=== PATIENT | male | born 1995 | race Caucasian/White ===

== ENCOUNTER 2017-03-21 14:52 | Emergency (ER) | payer BC ==
[~2017-03-21] VITALS: Ht 182.9 cm; Wt 70.0 kg
[2017-03-21 14:54] VITALS: Ht 182.9 cm; Wt 70.0 kg
--- NOTE | 2017-03-21 16:12 | EMERGENCY ROOM VISIT NOTE ---
History Report prepared by Angy: Caprice Palomares Under the Supervision of: Dr. Rodrick Chiu M.D. First contact with patient: 15:54 Chief Complaint: GI ASSESSMENT Stated Complaint: MANUEL, BLOATING, ABD PAIN, BLOOD IN STOOL Nursing Triage Summary: pt to the ED with c/o bloating for several years and a week ago became concerned that it may be serious. thinks there might be blood in stool has upp abd pain but doesn't remember it before the anxiety and was seen at pmd 2 days ago and given anxiety meds History of Present Illness The patient is a 22 year old male who presents to the Emergency Room with complaints of red flakes in his stool occurring this morning. The patient states he has a history of intermittent bloating beginning a couple years ago. He states his bloating comes every couple of months and lasts for a couple weeks at a time. The patient has a referral with gastroenterology but has not been seen by them yet. He notes a recent increase in anxiety and was started on anxiety medication 2 days ago. He also takes and Zantac. Per nursing note, the patient has upper abdominal pain. Source of History: patient Onset: this morning Position: other (global) Quality: other (blood in stool) Timing: other (episode) Associated Symptoms: + abdominal pain Note: Pt notes bloating Review of Systems See HPI for pertinent positives & negatives. A total of 10 systems reviewed and were otherwise negative. Past Medical & Surgical Medical Problems: (1) No Known Active Medical Problems Family History FHx: gallstones Social History Smoking Status: Never Smoker Smokeless Tobacco Use: No Alcohol Use: occasionally Marital Status: single Occupation Status: employed Physical Exam Vital Signs Date Time Temp Pulse Resp B/P (MAP) Pulse Ox O2 Delivery O2 Flow Rate FiO2 03/21/17 16:37 37.0 97 20 143/77 100 Room Air 03/21/17 14:54 36.8 96 16 157/96 98 Room Air Physical Exam GENERAL: Patient is a healthy-appearing well-nourished male HEAD: Normocephalic atraumatic EYES: Ocular movements intact pupils equal and react to light OROPHARYNX mucous membranes are moist no exudates present no erythema or edema present NECK: Supple no nuchal rigidity CHEST: Good equal expansion LUNGS: Clear and equal to auscultation CARDIAC: Normal S1 and S2 ABDOMEN: Soft nontender no guarding BACK: No CVA tenderness EXTREMITIES: No pain upon palpation normal muscle strength in all groups no clubbing cyanosis or edema RECTAL: Heme negative, no masses or hemorrhoids appreciated. NEURO: Patient is following commands and answering questions appropriately. Alert and oriented x3 Cranial Nerves 2-12 grossly intact Medical Decision & Procedures ER Provider Diagnostic Interpretation: Radiology results as stated below per my review and radiologist interpretation: KUB FINDINGS: Mild stool burden in the left colon. No bowel obstruction. No gross pneumoperitoneum. No calcifications to suggest nephrolithiasis. Osseous structures normal. Lung bases clear. IMPRESSION: 1. Mild stool burden in the left colon. No bowel obstruction. Electronically signed by: Yohan Rodas M.D. ED Course 1555: Past medical records reviewed. The patient was evaluated in room A12B. A complete history and physical examination was performed. 164: I updated the patient on his test results. 165: Upon reexamination the patient is resting comfortably. I discussed results and treatment plan with the patient. He verbalizes agreement and understanding. The patient is ready for discharge. Medical Decision Differential diagnosis: Etiologies such as appendicitis, diverticulitis, PUD, biliary pathology, UTI, pancreatitis, obstruction, mesenteric ischemia, aortic pathology, infections, inflammatory bowel disease, renal colic, as well as others were entertained. This is a 22-year-old male who presents emergency department complaining of multiple complaints. The patient reports he has had an anxiety attack. He recently was placed since her also as well as another anxiety medication he is more concerned that he feels he has blood in his stool. He is heme negative on rectal examination. This was done in the presence of a nurse. In addition the patient asked me to go through his stool and check out what he feels R blood flecks. There are red reflex present however they are heme-negative. Based on this finding I felt that the patient can be safely discharged home. He already has a follow-up with gastroenterology at home. Medication Reconcilliation Current Medication List: was personally reviewed by me Blood Pressure Screening Patient's blood pressure: Elevated blood pressure Blood pressure disposition: Referred to PCP Impression Primary Impression: Numbness and tingling Additional Impression: Constipation Scribe Attestation The scribe's documentation has been prepared under my direction and personally reviewed by me in its entirety. I confirm that the note above accurately reflects all work, treatment, procedures, and medical decision making performed by me. Departure Information Dispostion Home / Self-Care Referrals No Doctor, Assigned (PCP) Forms HOME CARE DOCUMENTATION FORM, IMPORTANT VISIT INFORMATION Patient Instructions Anxiety Body Response, ED Constipation, My [facility] Additional Instructions Take 10 oz bottle of miralax; Add to 16 oz of gatorade Drink continuously until moving creamy stools Clear liquid diet for next 48 hours Follow up with Gastroenterology Return if you develop fevers or pain worsens You have been examined and treated today on an emergency basis only. This is not a substitute for, or an effort to provide, complete comprehensive medical care. It is impossible to recognize and treat all injuries or illnesses in a single emergency department visit. It is therefore important that you follow up closely with your PCP. Call as soon as possible for an appointment. Thank you for your time and consideration. I look forward to speaking with you again soon. Please don't hesitate to call us if you have any questions. Problem Qualifiers Additional Impression: Constipation Constipation type: unspecified constipation type Qualified Codes: K59.00 - Constipation, unspecified
--- NOTE | 2017-03-21 16:29 | DIAGNOSTIC IMAGING REPORT ---
KUB CLINICAL HISTORY: 22 years-old Male presenting with Pt c/o bloating. TECHNIQUE: Single supine view of the abdomen was obtained. COMPARISON: None. FINDINGS: Mild stool burden in the left colon. No bowel obstruction. No gross pneumoperitoneum. No calcifications to suggest nephrolithiasis. Osseous structures normal. Lung bases clear. IMPRESSION: 1. Mild stool burden in the left colon. No bowel obstruction. Electronically signed by: Yohan Rodas M.D. 03/21/2017 4:27 PM Dictated Date/Time: 03/21/2017 4:27 PM
[2017-03-21 16:37] VITALS: BP 143/77; PULSE 97; TEMP 37; O2SAT 100
== END 2017-03-21 17:02 | disposition home or self-care (01) ==
LOC: C.EDB 14:54 → C.EDA 17:02
DX: R20.0 Anesthesia of skin (principal); R20.2 Paresthesia of skin; K59.00 Constipation, unspecified; R14.0 Abdominal distension (gaseous); F41.9 Anxiety disorder, unspecified